=== PATIENT | female | born 1990 | race Caucasian/White ===

== ENCOUNTER 2017-06-30 08:42 | Day surgery (SDC) | payer BC ==
[2017-06-29 15:03] VITALS: BMI 22.7
[2017-06-30 10:11] LABS: BHCG - Serum Negative (NEGATIVE); Pregs Control Background? CLEAR/WHITE (CLR/WHITE); Pregs Control Bar Appear? YES (CONTROL BAR)
[2017-06-30] MEDS ORDERED: Fentanyl 250 MCG/5 ML VIAL ONE (10:16)
[2017-06-30] MEDS ORDERED: Morphine 4 MG/ML VIAL ONE (10:16)
[2017-06-30] MEDS ORDERED: Midazolam HCl 2 mg/2 ml Vial ONE (10:21)
[2017-06-30] MEDS ORDERED: methylPREDNISolone Acetate 40 mg/ml Vial ONE (10:40)
--- NOTE | 2017-06-30 13:24 | OP ---
PREOPERATIVE DIAGNOSES: 1. Chronic adenotonsillitis. 2. Adenotonsillar hypertrophy. POSTOPERATIVE DIAGNOSES: 1. Chronic adenotonsillitis. 2. Adenotonsillar hypertrophy. PROCEDURE: Tonsillectomy and adenoidectomy. SURGEON: Aly Mesa M.D. ESTIMATED BLOOD LOSS: 0 mL COMPLICATIONS: None. ANESTHESIA: GETA. PROCEDURE: Tonsillectomy and adenoidectomy. PROCEDURE IN DETAIL: After consent was obtained, the patient was identified, brought to the operatin g room, and placed on the operating table in the supine position. General endotracheal anesthesia and intravenous access was obtained and we proceeded with positioning the patient for oropharyngeal surg erica. Oropharyngeal exposure was obtained with a Val-Jamin mouth gag after a head drape was placed a nd secured with a towel clip. The Val-Jamin mouth gag was then suspended from the Henderson tray and pal atal elevation was achieved with a red rubber catheter. The right tonsil was addressed first. We use d a curved Allis to grasp the tonsil and retract it medially as an anterior pillar incision was made. The retrotonsillar fascial plane was then established and blunt dissection was performed with the vasquez ction cautery. Blood vessels were anticipated, identified, and cauterized as they were encountered. U ltimately, dissection was carried to the posterior tonsillar pillar mucosa which was incised hemostat ically, as well as the base of tongue connection. The tonsil was then passed off as a specimen and bl eeding points within the tonsillar bed were cauterized under direct visualization. We subsequently tu rned our attention to the contralateral side, where using a similar technique, a near identical proce dure was performed. Again, the tonsil was grasped and retracted medially with a curved Allis. The ret rotonsillar fascial plane was established and while the anterior pillar was retracted medially, the h emostatic blunt dissection of the tonsil with a suction cautery was performed with blood vessels anti cipated, identified, and cauterized as they were encountered. Again, dissection continued to the bas e of tongue and posterior tonsillar pillar mucosa which was incised in a hemostatic fashion. The tons illar beds were then carefully inspected and bleeding points were identified and cauterized with a vasquez ction cautery. After this portion of the procedure, hemostasis was completely obtained. Under direct mirror visualization, we visualized the adenoid pad. Under direct mirror visualization, we removed th e bulk of the adenoid tissue with the adenoid curette. We then packed the nasopharynx for an appropri ate period of time with Sammy-Synephrine saturated tonsillar sponges. After a period of observation, we removed the pack. Under indirect mirror visualization, we obtained hemostasis and vaporization of re sidual adenoid tissue with electrocautery. The patient's oral cavity was copiously irrigated with ice d saline and subsequently suctioned. After completion of the procedure, the nasal cavity and orophary nx were irrigated and suctioned as were the gastric contents. The patient was then awakened and trans ferred to the recovery room where the patient remained in stable condition prior to discharge to Day Stay.
== END 2017-06-30 13:00 | disposition home or self-care (01) ==
LOC: SDC 08:42
PROVIDERS: ATTEND Otolaryngology Plastic Surgery within the Head & Neck
PROC: 0CTPXZZ Resection of Tonsils, External Approach (ICD-10-PCS; principal; 2017-06-30)
PROC: 0CTQXZZ Resection of Adenoids, External Approach (ICD-10-PCS; principal; 2017-06-30)
DX: J35.03 Chronic tonsillitis and adenoiditis (principal); Z97.5 Presence of (intrauterine) contraceptive device
CPT/HCPCS: 36415; 84703; 85014; 88304; J0131; J1030; J2250; J2270; J3010